=== PATIENT | male | born 1985 | race Caucasian/White ===

== ENCOUNTER 2020-12-14 11:52 | Emergency (ER) | payer SELFPAY ==
[2020-12-14 11:58] VITALS: BP 131/86; PULSE 91; RESP 18; TEMP 36.5; O2SAT 96; BMI 23.7
--- NOTE | 2020-12-14 12:55 | ED_ITS ---
HPI - Back Pain/Injury General Chief Complaint: Back Pain/Injury Stated Complaint: back pain Source: patient Mode of arrival: ambulatory Limitations: no limitations History of Present Illness HPI Narrative: Patient presents to ED for back pain after heavy lifting of boxes. Patient denies any recent blunt trauma to the back, abdominal pain, flank pain, fever, chills, nausea, dysuria, hematuria, testicular pain, or vomiting. Related Data Previous Rx's Medication Instructions Recorded cyclobenzaprine 10 mg PO TID PRN #18 tab 12/14/20 naproxen 500 mg PO BID PRN #20 tab 12/14/20 Allergies Allergy/AdvReac Type Severity Reaction Status Date / Time No Known Allergies Allergy Verified 12/14/20 12:01 [No Known Allergies*] Review of Systems Review of Systems: Yes all other systems are reviewed and are negative Constitutional: Constitutional: Reports as per HPI and Reports no additional constitutional complaints Eyes: Eyes: Reports as per HPI and Reports no additional eye complaints ENT: Reports system reviewed and no additional complaints, except as documented and Reports as per HPI Cardiovascular: Cardiovascular: Reports as per HPI and Reports no additional cardiovascular complaints Respiratory: Respiratory: Reports as per HPI and Reports no additional respiratory complaints Gastrointestinal: Gastrointestinal: Reports as per HPI and Reports no additional gastrointestinal complaints Genitourinary: Genitourinary: Reports no additional male genitourinary complaints and Reports as per HPI Musculoskeletal: Musculoskeletal: Reports no additional musculoskeletal complaints, Reports as per HPI and Reports back pain Neurologic: Reports system reviewed and no additional complaints, except as documented and Reports as per HPI [facility] Past Medical History Medical History (Updated 12/14/20 @ 12:59 by SU [facility]) Scoliosis Social History Social History Advance Directives: No Advance Directives Information Provided: No Physical Exam Vital Signs: Vital Signs: Last Vital Signs Temp 97.7 F 12/14/20 11:58 Pulse 91 12/14/20 11:58 Resp 18 12/14/20 11:58 BP 131/86 12/14/20 11:58 Pulse Ox 96 12/14/20 11:58 Body Mass Index 23.7 Const: General: cooperative, healthy appearing, comfortable, no acute distress, well developed, alert, awake and Physically active HENMT: Head: Yes normal to inspection, Yes No palpable skull fracture present, Yes normocephalic and Yes atraumatic Eyes: General: appearance normal, both eyes and all related structures Neck: Neck: Yes normal visual inspection, Yes full ROM, Yes no lymphadenopathy, Yes no meningeal signs, Yes trachea midline, Yes supple and No tender Chest: Chest palpation & inspection: normal inspection of the chest and normal palpation of entire chest wall Resp: Effort & Inspection: normal respiratory effort and able to speak in complete sentences Auscultation: clear to auscultation bilaterally Cardio: Jugular venous distension: no JVD Heart sounds: S1 normal heart sound present and S2 normal heart sound present GI: Inspection: Yes normal to inspection and No abdominal wall ecchymosis Palpation (GI): not soft, not firm, nontender, no guarding and not rigid : General: No CVA tenderness and Yes no CVA tenderness Back/Spine/Pelvis: Other: Negative spine tenderness. Pain on range of motion of back Back: no CVA tenderness, No CVA tenderness and back tenderness (Positive for Right lumbar muscular tenderness.) Skin: General skin exam: no rashes or lesions noted and elasticity normal Neuro: General: patient oriented x3, gait normal, no meningeal signs and CN's II-XI intact bilaterally Cranial nerves: Yes CN's II-XII intact bilaterally Extrem: General: Yes normal to inspection and Yes full ROM Psych: Appearance: grossly normal, well kempt and not disheveled Course Course Course Narrative: No need for imaging. No blunt trauma to the back. Pain is muscular. Reevaluation(s) Reevaluation #1: Toradol and Flexeril ordered. 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 Patient discharged with pain meds told to follow-up with PCP. Time: 12:58 MDM - Back Pain/Injury MDM Narrative Medical decision making narrative: Back sprain Discharge Plan Discharge Clinical Impression: Low back strain Patient Disposition: Home, Self-Care Instructions: Low Back Strain (ED) Additional Instructions: Return to the ED for any abdominal pain, nausea, vomiting, fever, chills, dysuria, hematuria, flank pain, urinary/bowel incontinence, paralysis of lower extremities, tingling/numbness down lower extremity, inability to ambulate, worsening back pain, or any other concerning symptoms. Please follow up with PCP Prescriptions: New naproxen 500 mg tablet 500 mg PO BID PRN (Reason: pain) Qty: 20 RF: 0 cyclobenzaprine 10 mg tablet 10 mg PO TID PRN (Reason: pain) Qty: 18 RF: 0 Stand Alone Forms: Work/School Release Interventions: ED Discharge Assessment Last Done: 12/14/20 13:11 Discharge Date/Time: 12/14/20 13:15 Print Language: [place]
[2020-12-14] MEDS: Ketorolac Tromethamine 30 MG/ML VIAL IM (13:00)
[2020-12-14] MEDS: Cyclobenzaprine HCl 5 MG TABLET PO (13:00)
== END 2020-12-14 13:15 | disposition home or self-care (01) ==
PROVIDERS: Emergency Provider Emergency Medicine
DX: S39.012A Strain of muscle, fascia and tendon of lower back, initial encounter (principal); X50.0XXA Overexertion from strenuous movement or load, initial encounter; Y93.9 Activity, unspecified; Y92.9 Unspecified place or not applicable; Y99.9 Unspecified external cause status
CPT/HCPCS: 96372; 99283; 99284; J1885